=== PATIENT | male | born 1990 | race Caucasian/White ===

== ENCOUNTER 2016-10-05 11:07 | Emergency (ER) | payer MEDICAID ==
[2016-10-05] MEDS ORDERED: L.E.T. 3 ML SOLUTION TOPICAL ONE (12:09)
[2016-10-05] MEDS ORDERED: ONDANSETRON 4 MG VIAL ONE (12:09)
[2016-10-05] MEDS ORDERED: DILAUDID 1 MG/ML AMP ONE (12:10)
[2016-10-05] MEDS ORDERED: SODIUM CHLORIDE 0.9% 1,000 ML ONE (12:10)
[2016-10-05] MEDS ORDERED: LIDOCAINE/EPI 1% MDV 20 ML ONE (13:52)
[2016-10-05] MEDS ORDERED: ED CLINDAMYCIN PREMIX 50 ML IV ONE (14:42)
== END 2016-10-05 15:36 | disposition home or self-care (01) ==
LOC: ER 11:07
DX: N49.2 Inflammatory disorders of scrotum (principal); F17.210 Nicotine dependence, cigarettes, uncomplicated
CPT/HCPCS: 36415; 76870; 80048; 85025; 85652; 96361; 96365; 96375